=== PATIENT | female | born 1930 | race Caucasian/White ===

== ENCOUNTER → 2020-10-08 | Outpatient (CLI) | payer MEDICARE ==
[~2020-10-08] MED LIST: ARICEPT10 MG PO; ASPIRIN E.C. 8181 MG PO; LEVOXYL0.025 MG PO; MYRBETR50MG PO; PAXIL 10MG10 MG PO; PEPCID 20MG TAB20 MG PO; PRILOSEC 20MG20 MG PO; ZESTRIL40 MG PO
== END ==
LOC: ZCOL.LAB 15:51
DX: N18.30 Chronic kidney disease, stage 3 unspecified (principal); E03.9 Hypothyroidism, unspecified

== ENCOUNTER → 2020-10-12 | Outpatient (CLI) | payer MEDICARE ==
[2020-10-12 15:34] LABS: CALCIUM 9.8 mg/dL (8.4-10.2); CREATININE, serum 1.01 (0.52-1.25); POTASSIUM 3.9 mmol/L (3.4-5.0)
[2020-10-12 16:04] LABS: THYROID STIMULATING HORMONE 3.42 uIU/mL (0.465-4.680)
== END ==
LOC: ZCOL.LAB 15:06
PROVIDERS: Family Medicine
DX: E03.9 Hypothyroidism, unspecified (principal); I12.9 Hypertensive chronic kidney disease with stage 1 through stage 4 chronic kidney disease, or unspecified chronic kidney disease; N18.9 Chronic kidney disease, unspecified

== ENCOUNTER → 2020-12-03 | Outpatient (CLI) | payer MEDICARE | LOC: ZCOL.LAB 13:18 | DX: E03.9 Hypothyroidism, unspecified (principal) ==

== ENCOUNTER → 2020-12-08 | Outpatient (CLI) | payer MEDICARE ==
[2020-12-08 18:43] LABS: COLLECTION METHOD CLEAN CATCH
[2020-12-08 18:57] LABS: MUCOUS Present /lpf; PH 5 (5-8); SQUAMOUS EPITHELIAL 0-2 /hpf; URINE APPEARANCE Clear; URINE BACTERIA Moderate /hpf; URINE BILIRUBIN Negative (NEGATIVE); URINE BLOOD Negative (NEGATIVE); URINE COLOR Straw; URINE GLUCOSE Negative (NEGATIVE); URINE KETONE Negative (NEGATIVE); URINE LEUKOCYTE ESTERASE Negative (NEGATIVE); URINE NITRATE Negative (NEGATIVE); URINE PROTEIN(semi-quant) Negative (NEGATIVE); URINE RBC 0-2 /hpf; URINE UROBILINOGEN Negative (NEGATIVE); URINE WBC 0-2 /hpf
== END ==
LOC: ZCOL.LAB 16:14
PROVIDERS: Family Medicine
DX: N39.0 Urinary tract infection, site not specified (principal)

== ENCOUNTER → 2020-12-24 | Outpatient (CLI) | payer MEDICARE ==
[2020-12-24 16:03] LABS: COLLECTION METHOD CLEAN CATCH
[2020-12-24 16:25] LABS: MUCOUS Present /lpf; PH 6 (5-8); SQUAMOUS EPITHELIAL None Seen /hpf; URINE APPEARANCE Clear; URINE BACTERIA None Seen /hpf; URINE BILIRUBIN Negative (NEGATIVE); URINE BLOOD Negative (NEGATIVE); URINE COLOR Yellow; URINE GLUCOSE Negative (NEGATIVE); URINE KETONE Negative (NEGATIVE); URINE LEUKOCYTE ESTERASE Negative (NEGATIVE); URINE NITRATE Negative (NEGATIVE); URINE PROTEIN(semi-quant) Negative (NEGATIVE); URINE RBC 0-2 /hpf
== END ==
LOC: ZCOL.LAB 14:29
PROVIDERS: Family Medicine
DX: N39.0 Urinary tract infection, site not specified (principal)

== ENCOUNTER 2021-06-06 10:00 | Inpatient (IN) | payer MEDICARE, OTHER ==
[~2021-06-06] VITALS: Wt 49.8 kg
[2021-06-06 10:21] LABS: COLLECTION METHOD CLEAN CATCH
[2021-06-06 10:42] LABS: BASO % 0.4 % (0.0-2.0); EOS # 0.1 K/mm3 (0.0-0.7); EOS % 0.7 % (0.0-4.0); GRAN # 7.2 K/mm3 (1.4-6.5); GRAN % 67.3 % (42.2-75.2); HEMATOCRIT 44.5 % (37.0-47.0); LYMPH # 2.8 K/mm3 (1.2-3.4); LYMPH % 26.1 % (20.0-51.0); MEAN CELL VOLUME 89 fl (80.0-100.0); MEAN CORPUSCULAR HEMOGLOBIN 30 pg (27-31); MEAN CORPUSCULAR HGB CONC 34 g/dl (33.0-37.0); MEAN PLATELET VOLUME 10.4 fl (7.4-10.4); MONO # 0.5 K/mm3 (0.1-0.6); PLATELET COUNT 390 K/mm3 (130-400); REDCELL DISTRIBUTION WIDTH-CV 13.1 % (11.5-14.5)
[2021-06-06 10:51] LABS: PH 5 (5-8); URINE APPEARANCE Cloudy (CLEAR/HAZY); URINE COLOR Yellow (YELLOW)
[2021-06-06 10:52] LABS: URINE BILIRUBIN Negative (NEGATIVE); URINE GLUCOSE Negative (NEGATIVE); URINE KETONE Trace (NEGATIVE); URINE PROTEIN(semi-quant) 1+ (NEGATIVE)
[2021-06-06 10:53] LABS: SQUAMOUS EPITHELIAL 0-2 /hpf (0-10); URINE BLOOD Negative (NEGATIVE); URINE LEUKOCYTE ESTERASE Negative (NEGATIVE); URINE NITRATE Negative (NEGATIVE); URINE RBC 0-2 /hpf (0-2)
[2021-06-06 10:54] LABS: MUCOUS Present (NOT PRESENT); URINE BACTERIA None Seen /hpf (NONE SEEN)
[2021-06-06 11:02] LABS: ALBUMIN 3.5 gm/dL (3.4-4.8); BILIRUBIN,TOTAL 1.2 mg/dL (0.2-1.2); CREATININE, serum 1.25 mg/dL (0.57-1.11); TOTAL PROTEIN 6.5 gm/dL (6.2-8.1)
[2021-06-06 11:09] LABS: POTASSIUM 2.9 mmol/L (3.5-4.5)
[2021-06-06 14:38] LABS: TROPONIN-I 0.027 ng/mL (0.00-0.033); TSH w REFLEX 2.037 uIU/mL (0.350-4.940)
--- NOTE | 2021-06-06 14:39 | NUR ---
PT ARRIVED TO UNIT FROM ED AND TRANSFERRED TO BED. ON 4L O2. SKIN SWARM PERFORMED, STAGE 1 PRESSURE SORE ON LOWER BACK/BUTTOCK. MINOR SKIN TEARS D/T FRAGILE SKIN. PT ALERT AND ORIENTED TO PERSON AND PLACE. NOT ORIENTED TO TIME. COMMINUCATES CLEARLY AND FOLLOWS COMMANDS. IRREGULAR HEART SOUNDS NOTED, OCCUPATIONAL HEALTH NURSE SUPERVISOR APPLIED.
[2021-06-06 15:07] VITALS: BP 128/94; PULSE 67; TEMP 97.5
--- NOTE | 2021-06-06 16:14 | NUR ---
PT SON UPDATED ON PT CONDITION
[2021-06-06] MEDS ORDERED: MYRBETR25MG PO (16:17)
[2021-06-06] MEDS ORDERED: LASIX 20MG TABL20 MG PO (16:17)
[2021-06-06] MEDS ORDERED: DULCOLAX TAB5 MG PO (16:21)
[2021-06-06] MEDS ORDERED: VITAMIND3 5000 PO (16:22)
[2021-06-06] MEDS ORDERED: TYLENOL 325MG325 MG PO (16:23)
[2021-06-06] MEDS ORDERED: ZOFRAN 4MG T4 MG/TAB PO (16:23)
[2021-06-06] MEDS ORDERED: TUMS500 MG PO (16:24)
[2021-06-06] MEDS ORDERED: LUTEIN 15 MG-0.1 SGL PO (16:27)
--- NOTE | 2021-06-06 17:10 | NUR ---
NO ADVERSE EVENTS DURING THE SHIFT. PT ALERT AND ORIENTED TO PERSON AND PLACE. DISORIENTED TO TIME. REPORTED NO PAIN. COMPLAINED OF FEELING "COLD". PROVIDED PT WITH EXTRA BLANKETS. PT UP TO BSC TO URINATE WITH ASSISTANCE. PT RESTING AND QUIET. BED ALARM ON.
--- NOTE | 2021-06-06 17:10 | NUR ---
PT PLEASANTLY CONFUSED, ALERT TO SELF BUT NOT CURRENT TIME, WHEN ASKED LOCATION PT RESPONDED WITH "I THINK IM AT THE HOSPITAL". PT STANDBY ASSIST TO BEDSIDE COMMODE. PT ABLE TO STATE WHEN SHE NEEDS TO URINATE, NO OTHER NEEDS
[2021-06-06 20:29] VITALS: BP 128/94; PULSE 89; TEMP 98.5
--- NOTE | 2021-06-06 20:30 | NUR ---
Initial shift assessment done- denies pain, drowsy,wants the lights off- confused, cooperative,VSS, tele on, Iv fluids of NS at 75cc/hr- bed alarm on- close to nsg station
[2021-06-06 23:52] VITALS: BP 123/82; PULSE 80; TEMP 97.8
[2021-06-06 23:57] VITALS: BP 123/82; PULSE 82; TEMP 97.8
[2021-06-07] VITALS (7 sets, daily range): BP systolic 106–142; BP diastolic 60–85; PULSE 63–72; TEMP 97–98.9
--- NOTE | 2021-06-07 05:41 | NUR ---
Quiet night- pleasantly confused- VSS , Slept all night
[2021-06-07 06:31] LABS: BASO # 0.1 K/mm3 (0.0-0.2); BASO % 0.7 % (0.0-2.0); EOS # 0.1 K/mm3 (0.0-0.7); EOS % 0.9 % (0.0-4.0); GRAN # 4.2 K/mm3 (1.4-6.5); GRAN % 51.8 % (42.2-75.2); HEMATOCRIT 39.1 % (37.0-47.0); LYMPH # 3.3 K/mm3 (1.2-3.4); LYMPH % 40.5 % (20.0-51.0); MEAN CELL VOLUME 90 fl (80.0-100.0); MEAN CORPUSCULAR HEMOGLOBIN 30 pg (27-31); MEAN CORPUSCULAR HGB CONC 33 g/dl (33.0-37.0); MONO # 0.5 K/mm3 (0.1-0.6); MONO % 5.9 % (1.7-9.3); PLATELET COUNT 368 K/mm3 (130-400); RED BLOOD COUNT 4.34 M/mm3 (4.10-5.30); REDCELL DISTRIBUTION WIDTH-CV 13.2 % (11.5-14.5)
[2021-06-07 06:47] LABS: CALCIUM 8.4 mg/dL (8.4-10.2); CREATININE, serum 0.81 mg/dL (0.57-1.11); POTASSIUM 3.5 mmol/L (3.5-4.5)
--- NOTE | 2021-06-07 07:04 | NUR ---
PT LAYING IN BED AT THIS TIME, DENIES ANY SOB, O2 OFF AT THIS TIME. SPO2 IS 92-93%. NO OTHER CONCERNS.
--- NOTE | 2021-06-07 07:50 | NUR ---
PT PRESENTED WITH BLOOD SUGAR OF 63. ORANGE JUICE GIVEN. BLOOD SUGAR RECHECKED 15 MINUTES LATER. BLOOD SUGAR INCREASED TO 79.
--- NOTE | 2021-06-07 12:31 | NUR ---
PT DROWSY AND RESTING THROUGHOUT THE MORNING AND AFTERNOON. INITIALLY REFUSED 0800 AND 0900 MEDICATIONS FOR NURSING STUDENTS. PT COMPLIED AND TOOK MEDICATIONS AROUND 1100. RESTING IN BED. ALERT AND ORIENTED TO PERSON DISORIENTED TO PLACE AND TIME. MURMUR UPON AUSCULTATION. NORMAL HR AND RR. REFUSING TO EAT OR USE BSC. NURSING STUDENTS BLADDER SCANNED PT. LESS THAN 120 ML IN BLADDER. CONTINUING TO MONITOR
--- NOTE | 2021-06-07 15:02 | NUR ---
submarine worker met with patient to discuss discharge plan. Patient's son Jp ([phone]) present at bedside. Patient currently resides at [facility]. She reports to being independent with her ADL's and utilizes a walker to assist with mobility. PCP is Dr. Hodges and her medications are managed through [facility]. Patient has a DPOA-HC established and her son Jp is her agent. Discharge plan: [facility]
--- NOTE | 2021-06-07 19:04 | NUR ---
NO ADVERSE EVENTS DURING THE SHIFT. PT ALERT AND ORIENTED TO PERSON. DISORIENTED TO PLACE AND TIME. CONFUSED AND CONTINUES TO STAND UP WITHOUT ASSISTANCE. BED ALARM AND CHAIR ALARM REMAIN ON. YELLOW GOWN AND YELLOW SOCKS ON. REFUSED FOOD MOST OF THE DAY. ATE APPROX 25% OF LUNCH. NO PAIN ASSUMED. CONTINUING ON NS AT 75 ML/HR. NO CONCERNS AT THIS TIME.
--- NOTE | 2021-06-07 20:30 | NUR ---
Initial shift assessment done- has been up in wheelchair tonight- now ready for bed-- back to bed,, bed alarm on- remains confused- cooperative/pleasant. IV fluids of NS at 75cc/hr- Tele on ,SR 60,s
[2021-06-08 03:59] VITALS: BP 139/78; PULSE 84; TEMP 97.8
--- NOTE | 2021-06-08 06:42 | NUR ---
Quiet night-- VSS, Up to the bathroom a couple times, one assist- Confused, cooperative. Did sleep most of the night
[2021-06-08] MEDS ORDERED: OMNICEF 300MG300 MG PO (07:14)
[2021-06-08 07:45] VITALS: BP 159/96; PULSE 79; TEMP 98
--- NOTE | 2021-06-08 07:54 | NUR ---
CONTACTED PROVIDER REGUARDING LABS NOT BEING DRAWN TODAY; PROVIDER STATES THEY PLAN ON DISCHARGING TODAY SO NO NEED TO GET LABS.
--- NOTE | 2021-06-08 09:44 | NUR ---
Initial visit; Patient thanked Certified Marine Mechanic for offering prayer and God's blessings and keeping her in [employer]ified [employer]ic's prayers.
--- NOTE | 2021-06-08 10:41 | NUR ---
yard warehouse worker faxed discharge orders and clinical updates to Tere at [facility]. Angely reports that the patient has been positive for Covid in the past so no swab needed. Angely reports that transportation can be arranged for 1300 today. Patient and patient's son notified of the above. Discharge plan: [facility] at 1300 today
[2021-06-08 11:12] VITALS: BP 151/107; PULSE 72; TEMP 98.2
--- NOTE | 2021-06-08 12:32 | NUR ---
PT HAS HAD UNEVENTFUL MORNING. DISCUSSED DISCHARGE WITH POOJA FRIEDMAN WHO IS TAKING DISCHARGES TODAY. [facility] WILL PREPARE HER FOR DISCHARGE AT 1300. NO FURTHER CONCERNS.
--- NOTE | 2021-06-08 12:35 | NUR ---
TAKING OVER PATIENT'S CARE AND GETTING HER READY TO DISCHARGE BACK TO THE NH. SON AT BEDSIDE. GAVE AM MEDS. DC'D IV SITE AND COVERED WITH [employer]. WORKING ON DISCHARGE PAPERWORK. SON PACKING BELONGINGS.
[2021-06-08 12:37] VITALS: BP 151/107; PULSE 72; TEMP 98.2
--- NOTE | 2021-06-08 13:15 | NUR ---
PATIENT DISCHARGING BACK TO [facility] VIA WC WITH DAYSI ROBERTSON. SON AT BEDSIDE. GAVE DISCHARGE PACKET TO DAYSI NGUYỄN. CALLED REPORT TO NURSE AT [facility]. DC'D LEFT WRIST IV AND COVERED SITE WITH [employer]ZE [employer]. PATIENT IS DRESSED, PACKED AND DISCHARGED.
== END 2021-06-08 13:15 | DRG 689 ==
LOC: COL.ER 10:00 → MEDICAL 11:10
PROVIDERS: Nurse Practitioner Primary Care; Physician Assistant; ADMIT Internal Medicine
DX: N39.0 Urinary tract infection, site not specified (principal); J96.01 Acute respiratory failure with hypoxia; E87.2 Acidosis; K21.9 Gastro-esophageal reflux disease without esophagitis; E03.9 Hypothyroidism, unspecified; R32 Unspecified urinary incontinence; B96.4 Proteus (mirabilis) (morganii) as the cause of diseases classified elsewhere; F03.90 Unspecified dementia, unspecified severity, without behavioral disturbance, psychotic disturbance, mood disturbance, and anxiety; F32.A Depression, unspecified; M81.0 Age-related osteoporosis without current pathological fracture; I12.9 Hypertensive chronic kidney disease with stage 1 through stage 4 chronic kidney disease, or unspecified chronic kidney disease; N18.2 Chronic kidney disease, stage 2 (mild); N32.81 Overactive bladder; I48.91 Unspecified atrial fibrillation; K86.9 Disease of pancreas, unspecified; E87.6 Hypokalemia; E83.52 Hypercalcemia; L89.151 Pressure ulcer of sacral region, stage 1; E16.2 Hypoglycemia, unspecified; Z96.651 Presence of right artificial knee joint; Z23 Encounter for immunization
CPT/HCPCS: 99223-AI; 99232-AI; 99239; J0696; J1644; J3370; J7030; J7050; Q9967

== ENCOUNTER → 2021-10-20 | Outpatient (CLI) | payer MEDICARE, OTHER ==
[~2021-10-20] MED LIST changes: +DULCOLAX TAB5 MG PO; +LASIX 20MG TABL20 MG PO; +LUTEIN 15 MG-0.1 SGL PO; +MYRBETR25MG PO; +OMNICEF 300MG300 MG PO; +TUMS500 MG PO; +TYLENOL 325MG325 MG PO; +VITAMIND3 5000 PO; +ZOFRAN 4MG T4 MG/TAB PO
[2021-10-20 13:46] LABS: BASO # 0.1 K/mm3 (0.0-0.2); BASO % 0.8 % (0.0-2.0); EOS # 0.3 K/mm3 (0.0-0.7); EOS % 4.6 % (0.0-4.0); GRAN # 2.8 K/mm3 (1.4-6.5); GRAN % 43.2 % (42.2-75.2); HEMATOCRIT 37.8 % (37.0-47.0); HEMOGLOBIN 12.3 g/dl (12.5-16.0); LYMPH # 2.8 K/mm3 (1.2-3.4); LYMPH % 44.4 % (20.0-51.0); MEAN CELL VOLUME 93 fl (80.0-100.0); MEAN CORPUSCULAR HEMOGLOBIN 30 pg (27-31); MEAN CORPUSCULAR HGB CONC 33 g/dl (33.0-37.0); MEAN PLATELET VOLUME 10.2 fl (7.4-10.4); MONO # 0.4 K/mm3 (0.1-0.6); MONO % 6.8 % (1.7-9.3); PLATELET COUNT 330 K/mm3 (130-400); RED BLOOD COUNT 4.05 M/mm3 (4.10-5.30); REDCELL DISTRIBUTION WIDTH-CV 13.5 % (11.5-14.5)
[2021-10-20 13:49] LABS: ALBUMIN 2.9 gm/dL (3.4-4.8); ALKALINE PHOSPHATASE 59 U/L (40-150); ANION GAP 10 mmol/L (7-16); AST,SGOT 11 U/L (5-34); BILIRUBIN,TOTAL 0.5 mg/dL (0.2-1.2); BLOOD UREA NITROGEN 16 mg/dL (10-20); CARBON DIOXIDE 28 mmol/L (23-31); CHLORIDE 105 mmol/L (98-107); CHOLESTEROL 196 mg/dL (0-199); CHOLESTEROL RISK RATIO 3.6; CREATININE, serum 0.79 mg/dL (0.57-1.11); GLUCOSE 85 mg/dL (70-99); HDL CHOLESTEROL 53 mg/dL (40-60); LDL CHOLESTEROL 125 mg/dL; POTASSIUM 3.8 mmol/L (3.5-4.5); SODIUM 143 mmol/L (136-145); THYROID STIMULATING HORMONE 1.304 uIU/mL (0.350-4.940); TOTAL PROTEIN 5.5 gm/dL (6.2-8.1); TRIGLYCERIDE 91 mg/dL (0-149)
[2021-10-20 13:58] LABS: ALANINE AMINOTRANSFERASE < 6 U/L (0-55)
== END ==
LOC: ZCOL.LAB 12:52
PROVIDERS: Family Medicine
DX: M81.0 Age-related osteoporosis without current pathological fracture (principal); E03.9 Hypothyroidism, unspecified

== ENCOUNTER → 2021-11-06 | Outpatient (CLI) | payer MEDICARE, OTHER ==
[2021-11-06 17:46] LABS: COLLECTION METHOD CLEAN CATCH
[2021-11-06 18:04] LABS: MUCOUS Present (NOT PRESENT); PH 6 (5-8); SQUAMOUS EPITHELIAL 0-2 /hpf (0-10); URINE APPEARANCE Cloudy (CLEAR/HAZY); URINE BACTERIA Rare /hpf (NONE SEEN); URINE BLOOD Negative (NEGATIVE); URINE COLOR Yellow (YELLOW); URINE GLUCOSE Negative (NEGATIVE); URINE KETONE Negative (NEGATIVE); URINE NITRATE Negative (NEGATIVE); URINE PROTEIN(semi-quant) Negative (NEGATIVE); URINE UROBILINOGEN Negative (NEGATIVE)
[2021-11-06 18:06] LABS: AMORPHOUS CRYSTAL Present (NOT PRESENT)
== END ==
LOC: ZCOL.LAB 16:01
PROVIDERS: Family Medicine
DX: R30.0 Dysuria (principal)

== ENCOUNTER → 2021-11-14 | Outpatient (CLI) | payer MEDICARE, OTHER ==
[2021-11-14 16:05] LABS: COLLECTION METHOD CLEAN CATCH
[2021-11-14 16:42] LABS: MUCOUS Present (NOT PRESENT); SQUAMOUS EPITHELIAL None Seen /hpf (0-10); URINE BACTERIA None Seen /hpf (NONE SEEN); URINE RBC None Seen /hpf (0-2)
[2021-11-14 17:03] LABS: PH 5 (5-8); URINE APPEARANCE Cloudy (CLEAR/HAZY); URINE BLOOD Negative (NEGATIVE); URINE COLOR Yellow (YELLOW); URINE GLUCOSE Negative (NEGATIVE); URINE KETONE Negative (NEGATIVE); URINE NITRATE Negative (NEGATIVE); URINE PROTEIN(semi-quant) Negative (NEGATIVE); URINE UROBILINOGEN Negative (NEGATIVE)
== END ==
LOC: ZCOL.LAB 15:25
PROVIDERS: Family Medicine
DX: N39.0 Urinary tract infection, site not specified (principal)